=== PATIENT | female | born 1950 | race Caucasian/White ===

== ENCOUNTER 2016-09-06 06:22 | Day surgery (SDC) | payer OTHER, MEDICARE, MEDICAID ==
[2016-09-06] MEDS ORDERED: IV START KIT ONE (06:28)
[2016-09-06] MEDS ORDERED: LACTATED RINGERS 1,000 ML ONE (06:28)
[2016-09-06] MEDS ORDERED: FENTANYL 100 MCG/2 ML VIAL ONE (06:36)
[2016-09-06] MEDS ORDERED: PROPOFOL 60 ML IV ONE (06:36)
[2016-09-06] MEDS ORDERED: LACTATED RINGERS 1,000 ML IV SCH (08:30)
--- NOTE | 2016-09-08 14:00 | SURGPATH ---
[facility] [address] [place] [id number] Patient Name: MAURI MAHAJAN MR#: [id number] : 1950 Gender: F Specimen #: [id number] Collected: 09/06/2016 Received: 09/07/2016 Reported: 09/08/2016 Submitting Phys: CAROLYN GARCIA [facility] Phys[facility] S[facility] LIND[facility] Clinical History / Pre-Operative Diagnosis: ANEMIA Specimen Source / Surgical Procedure Performed: #1-TRANSVERSE POLYP X2; #2-ILEOCECAL VALVE BIOPSY X1; #3-ASCENDING COLON BIOPSY; #4-TRANSVERSE COLON BIOPSY; #5-DESCENDING COLON BIOPSY; #6-SIGMOID BIOPSY; #7-RECTAL BIOPSY Interpretation: 1. COLON, TRANSVERSE, BIOPSY: - COLONIC MUCOSA SHOWING NO DIAGNOSTIC ABNORMALITIES. - NO EVIDENCE OF SIGNIFICANT INFLAMMATION OR MALIGNANCY. 2. ILEOCECAL VALVE, BIOPSY: - COLONIC MUCOSA SHOWING NO DIAGNOSTIC ABNORMALITIES. - NO EVIDENCE OF SIGNIFICANT INFLAMMATION OR MALIGNANCY. 3. COLON, ASCENDING, BIOPSY: - COLONIC MUCOSA SHOWING NO DIAGNOSTIC ABNORMALITIES. - NO EVIDENCE OF SIGNIFICANT INFLAMMATION OR MALIGNANCY. 4. COLON, TRANSVERSE, BIOPSY: - COLONIC MUCOSA SHOWING NO DIAGNOSTIC ABNORMALITIES. - NO EVIDENCE OF SIGNIFICANT INFLAMMATION OR MALIGNANCY. 5. COLON, DESCENDING, BIOPSY: - COLONIC MUCOSA SHOWING NO DIAGNOSTIC ABNORMALITIES. - NO EVIDENCE OF SIGNIFICANT INFLAMMATION OR MALIGNANCY. 6. COLON, SIGMOID, BIOPSY: - MILD CHRONIC ACTIVE COLITIS. - NO EVIDENCE OF GRANULOMAS, DYSPLASIA, OR MALIGNANCY. 7. RECTUM, BIOPSY: - MILD CHRONIC ACTIVE COLITIS. - NO EVIDENCE OF GRANULOMAS, DYSPLASIA, OR MALIGNANCY. Electronically Signed Out Nima Cooley M.D., Ph.D. Gross Description: #1 The specimen is received in a formalin filled container labeled with the patient's name and "transverse polyp x2". Two wheat biopsies are 0.4 and 0.5 cm. Totally embedded in cassette #1. #2 The specimen is received in a formalin filled container labeled with the patient's name and "ileocecal valve biopsy". Two bowen-wheat biopsies are 0.3 and 0.4 cm. Totally embedded in cassette #2. #3 The specimen is received in a formalin filled container labeled with the patient's name and "ascending colon biopsy". Two bowen biopsies are each 0.4 cm. Totally embedded in cassette #3. #4 The specimen is received in a formalin filled container labeled with the patient's name and "transverse colon biopsy". Two bowen-wheat biopsies are 0.3 and 0.5 cm. Totally embedded in cassette #4. #5 The specimen is received in a formalin filled container labeled with the patient's name and "descending colon biopsy". Two bowen-wheat biopsies are each 0.4 cm. Totally embedded in cassette #5. #6 The specimen is received in a formalin filled container labeled with the patient's name and "sigmoid biopsy". Five bowen-wheat biopsies are 0.2-0.4 cm. Totally embedded in cassette #6. #7 The specimen is received in a formalin filled container labeled with the patient's name and "rectum biopsy". Four bowen-wheat biopsies are 0.3-0.5 cm. Totally embedded in cassette #7. Alex Matute. Microscopic Description: 1. Examination of multiple levels from the transverse colon biopsy shows two fragments of histologically unremarkable colonic mucosa. The architecture is intact without evidence of distortion. There is no evidence of significant inflammation or malignancy. 2. Examination of multiple levels from the ileocecal valve biopsy shows two fragments of colonic mucosa with associated benign lymphoid aggregates. There is no evidence of significant inflammation or malignancy. 3. Examination of multiple levels from the ascending colon biopsy shows two fragments of histologically unremarkable colonic mucosa. The architecture is intact without evidence of distortion. There is no evidence of significant inflammation or malignancy. 4. Examination of multiple levels from the transverse colon biopsy shows two fragments of histologically unremarkable colonic mucosa. The architecture is intact without evidence of distortion. There is no evidence of significant inflammation or malignancy. 5. Examination of multiple levels from the descending colon biopsy shows two fragments of histologically unremarkable colonic mucosa. The architecture is intact without evidence of distortion. There is no evidence of significant inflammation or malignancy. 6. Examination of multiple levels from the sigmoid colon biopsy shows multiple fragments of colonic mucosa with expansion of the lamina propria by a mixed inflammatory cell infiltrate consisting of lymphocytes, plasma cells, eosinophils, and occasional neutrophils. Neutrophils within the glandular epithelium are seen. No crypt abscesses are seen. Architectural distortion characterized by loss of mucin and crypt dropout are seen. There is no evidence of granulomas, dysplasia, or malignancy. 7. Examination of multiple levels from the rectum biopsy shows multiple fragments of colonic mucosa with expansion of the lamina propria by a mixed inflammatory cell infiltrate consisting of lymphocytes, plasma cells, eosinophils, and neutrophils. Neutrophils within the glandular epithelium are seen. No crypt abscesses are seen. Architectural distortion characterized by crypt copout and loss of mucin are seen. There is no evidence of granulomas, dysplasia, or malignancy. 1: [id number] 2: [id number] 3: 4: 5: 6: 7: [id number] K52.9 K62.9
== END 2016-09-06 08:51 | disposition home or self-care (01) ==
LOC: SDC 06:22
PROVIDERS: ATTEND Surgery
PROC: 0DBL8ZX Excision of Transverse Colon, Via Natural or Artificial Opening Endoscopic, Diagnostic (ICD-10-PCS; principal; 2016-09-06)
DX: D12.3 Benign neoplasm of transverse colon (principal); D50.0 Iron deficiency anemia secondary to blood loss (chronic); K52.9 Noninfective gastroenteritis and colitis, unspecified; K62.89 Other specified diseases of anus and rectum
CPT/HCPCS: 45380; J3010; J7120